=== PATIENT | male | born 1980 | race American Indian/Alaskan Native ===

== ENCOUNTER 2017-06-07 08:28 | Emergency (ER) | payer OTHER ==
[2017-06-07 08:34] VITALS: RESP 18
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
[2017-06-07] MEDS ORDERED: Lidocaine 5% Patch TD STA (08:59)
[2017-06-07] MEDS ORDERED: Lidocaine 5% Patch TD ONE (09:06)
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
[2017-06-07 10:38] VITALS: BP 128/76; PULSE 74; TEMP 98.2
[2017-06-07 10:39] VITALS: O2SAT 99
== END 2017-06-07 10:46 | disposition home or self-care (01) ==
LOC: C.ER 08:28
DX: S13.4XXA Sprain of ligaments of cervical spine, initial encounter (principal); S33.5XXA Sprain of ligaments of lumbar spine, initial encounter; V49.49XA Driver injured in collision with other motor vehicles in traffic accident, initial encounter; Y92.410 Unspecified street and highway as the place of occurrence of the external cause
CPT/HCPCS: 72125; 72131; 96372; 99284; J1885